=== PATIENT | male | born 1970 | race Caucasian/White ===

== ENCOUNTER 2017-07-14 06:22 | Emergency (ER) | payer BC, OTHER ==
[~2017-07-14] VITALS: Ht 182.9 cm; Wt 99.8 kg
[~2017-07-14 06:22] MED LIST: ACETAMINOPHEN-1 EAC1 PO; CARVEDILOL25 MG PO; CEPHALEXIN500 MG PO; ERYTHROMYCIN3.5 GM OD; IBUPROFEN200 MG PO; IBUPROFEN600 MG PO; LISINOPRIL-HCT1 EAC2 PO; LISINOPRIL10 MG PO; NAPROSYN500 MG PO; NORCO 10-325 T1 EACH PO; NORCO 5-325 TA1 EACH PO; TOBRAMYCIN5 ML OD
== END 2017-07-14 08:27 | disposition home or self-care (01) ==
LOC: ED 06:22
DX: M79.642 Pain in left hand (principal); I10 Essential (primary) hypertension; F17.200 Nicotine dependence, unspecified, uncomplicated; Z79.899 Other long term (current) drug therapy
CPT/HCPCS: 73130; 99283

== ENCOUNTER 2018-08-03 11:09 | Observation (INO) | payer BC, OTHER ==
[~2018-08-03] VITALS: Ht 182.9 cm; Wt 96.8 kg
--- OUTSIDE RECORDS SUMMARY | ~2018-08-03 | XMS | Clinical Summary ---
Demographics + + + | Address | [address] | | | [place] [address] | + + + | Home Phone | | + + + | Preferred Language | Unknown | + + + | Marital Status | Unknown | + + + | Moravian Affiliation | Unknown | + + + | Race | Unknown | + + + | Ethnic Group | Unknown | + + + Author + + + | Author | [facility] | | | and Shiva | + + + | Organization | [facility] | | | and [place] | + + + | Address | Unknown | + + + | Phone | Unavailable | + + + Care Team Providers + +------+ + | Care Clip On Sunglasses Assembler Name | Role | Phone | + [...]
--- OUTSIDE RECORDS SUMMARY | ~2018-08-03 | XMS | Clinical Summary ---
Demographics + + + | Address | [address] | | | [place] [address] | + + + | Home Phone | | + + + | Preferred Language | Unknown | + + + | Marital Status | Single | + + + | Religion Affiliation | Unknown | + + + | Race | Unknown | + + + | Ethnic Group | Unknown | + + + Author + + + | Author | [facility] | + + + | Organization | [facility] | + + + | Address | Unknown | + + + | Phone | Unavailable | + + + Support + + +---------+ + | Name | Relationship | Address | Phone | + + +---------+ + | No,Contact | ECON | Unknown | | + + +---------+ + Care Team Providers + +------+ + | Care Salesperson Flying Squad Name | Role | Phone | + [...] | [employer] | ODS | [id number] | | | | | | HEALTH [...] | cass[place] | | | [address] | [phone] | + +--------+ +--------+ + +"
--- OUTSIDE RECORDS SUMMARY | 2018-08-03 12:14 | XMS | Clinical Summary ---
Demographics + + + | Address | [address] | | | [place] [address] | + + + | Home Phone | | + + + | Preferred Language | Unknown | + + + | Marital Status | Single | + + + | Muslim Affiliation | Unknown | + + + | Race | Unknown | + + + | Ethnic Group | Unknown | + + + Author + + + | Author | [facility] | + + + | Organization | [facility] | + + + | Address | Unknown | + + + | Phone | Unavailable | + + + Support + + +---------+ + | Name | Relationship | Address | Phone | + + +---------+ + | No,Contact | ECON | Unknown | | + + +---------+ + Care Team Providers + +------+ + | Care Pan Washer Name | Role | Phone | + +------+ + | Tasha Becerril PA-C | PP | | + +------+ + Allergies Not on File Current Medications Not on file Active Problems Not on file Social History + +-------+ +--------+------+ | Tobacco Use | Types | Packs/Day | Years | Date | | | | | Used | | + +-------+ +--------+------+ | Never Assessed | | | | | + +-------+ +--------+------+ + + + | Sex Assigned at | Date Recorded | | | | + + + | Not on file | | + + + Plan of Treatment Not on file Results Not on filefrom Last 3 Months Insurance + +--------+ +------+-------+---------+ | Payer | Benefi | Subscriber | Type | Phone | Address | | | t Plan | ID | | | | | | / | | | | | | | Group | | | | | + +--------+ +------+-------+---------+ | [employer] | ODS | [id number] | | | | | | HEALTH | | | | | | | PLAN | | | | | + +--------+ +------+-------+---------+ + +--------+ +--------+ + + | Guarantor Name | Accoun | Relation to | Date | Phone | Billing Address | | | t Type | Patient | of | | | | | | | | | | + +--------+ +--------+ + + | HELADIO MONIQUE | Person | Self [birth year] | Home: | [address] | | | al/Fam | | 1970 | [phone] [place], [place] | | | cassandra | | | [phone] | [phone] | + +--------+ +--------+ + +"
--- OUTSIDE RECORDS SUMMARY | 2018-08-03 12:14 | XMS | Clinical Summary ---
Demographics + + + | Address | [address] | | | [place] [address] | + + + | Home Phone | | + + + | Preferred Language | Unknown | + + + | Marital Status | Single | + + + | Rastafarian Affiliation | Unknown | + + + | Race | Unknown | + + + | Ethnic Group | Unknown | + + + Author + + + | Author | [facility] | + + + | Organization | [facility] | + + + | Address | Unknown | + + + | Phone | Unavailable | + + + Support + + +---------+ + | Name | Relationship | Address | Phone | + + +---------+ + | No,Contact | ECON | Unknown | | + + +---------+ + Care Team Providers + +------+ + | Care Erp Project Manager Name | Role | Phone | + [...] | [employer] | ODS | [id number] | | | | | | HEALTH [...] | cassandra | | | [address] | [phone] | + +--------+ +--------+ + +"
--- OUTSIDE RECORDS SUMMARY | 2018-08-03 12:14 | XMS | Clinical Summary ---
Demographics + + + | Address | [address] | | | [place] [address] | + + + | Home Phone | | + + + | Preferred Language | Unknown | + + + | Marital Status | Unknown | + + + | Christianity Affiliation | Unknown | + + + | Race | Unknown | + + + | Ethnic Group | Unknown | + + + Author + + + | Author | [facility] | | | and [facility]iva | + + + | Organization | [facility] | | | and [place] | + + + | Address | Unknown | + + + | Phone | Unavailable | + + + Care Team Providers + +------+ + | Care Bank Clerk Name | Role | Phone | + +------+ + PP | Unavailable | + +------+ + Allergies Not on [...] | + + + Plan of Treatment + + + + + | Health Maintenance | Due Date | Last Done | Comments | + + + + + | Vaccine: | | | | | Dtap/Tdap/Td (1 - | 8 | | | | Tdap) | | | | + + + + + | Vaccine: Influenza | | | | | (#1) | 8 | | | + + + + + Results Not on filefrom Last 3 Months"
--- OUTSIDE RECORDS SUMMARY | 2018-08-03 12:14 | XMS | Clinical Summary ---
Demographics + + + | Address | [address] | | | [place] [address] | + + + | Home Phone | | + + + | Preferred Language | Unknown | + + + | Marital Status | Unknown | + + + | Hindu Affiliation | Unknown | + + + | Race | Unknown | + + + | Ethnic Group | Unknown | + + + Author + + + | Author | [facility] | | | and [facility] | + + + | Organization | [facility] | | | and [place] | + + + | Address | Unknown | + + + | Phone | Unavailable | + + + Care Team Providers + +------+ + | Care Treating Engineer Name | Role | Phone | + [...]
--- NOTE | 2018-08-03 15:00 | NUR ---
PT ARRIVED TO FLOOR AT 1455. ADMISSION INTAKE COMPLETED. VSS. PT GIVEN POTASSIUM PO AND IV MAGNESIUM PER ORDER. PT ASSISTED TO ORDER DINNER.
--- NOTE | 2018-08-03 16:27 | NUR ---
MED REC COMPLETE WITH [facility] REFILL HISTORY. PATIENT RECENTLY 07/29/18 FILLED FOR PERMETHRIN. PATIENT FILLS LISINOPRIL-HCTZ APPROXIMATELY EVERY 60 DAYS FOR A 30 DAY SUPPLY.
--- NOTE | 2018-08-03 18:08 | NUR ---
PT VS AND CONDITION STABLE TODAY SINCE HIS ARRIVAL TO UNIT AND INTO ROOM ON MED SURG. PT VERY PLEASANT, CALM AND COOPERATIVE. PRN NORCO GIVEN FOR RIGHT ARM PAIN WHICH ADEQUATELY HELPED PAIN. ROOM AIR. SALINE LOCKED. STEADY ON FEET INDEPENDENTLY. RIGHT ARM ELEVATED ON PILLOW TO HELP DECREASE SWELLING. GAUZE COVERING ASPRIATION SITE ON RIGHT ELBOW- IT'S C/D/I. GENERALIZED SCRATCHES AND SCABS OVER BODY, MOST SPECIFICALLY ON BUE AND BLE FROM RECENT CASE OF SCABIES. PT STATES HIS TREATMENT FOR SCABIES HAS BEEN COMPLETED BUT HE REMAINS ON CONTACT PRECAUTIONS IN CASE. LAST BM WAS YESTERDAY. PT HAS UPPER DENTURES IN. PT HAS NO CURRENT QUESTIONS OR CONCERNS. CALL LIGHT WITHIN REACH. CALLS APPROPRIATELY. WILL CONTINUE TO MONITOR.
--- NOTE | 2018-08-03 20:00 | NUR ---
RECEIVED REPORT AT 1900, FOUND PT IN BED WITH SPOUSE AT BEDSIDE. PT STATED ONLY MINIMAL PAIN PRESENT. NO NEW CONCERNS AT THIS TIME.
--- NOTE | 2018-08-03 20:22 | NUR ---
CHARGE NURSE ROUNDING NOTE: OBSERVATION STATUS AND CONTACT PRECAUTIONS IN PLACE. AWAKE, WATCHING TV, NO C/O PAIN OR REQUESTS, FLUIDS AND CALL LIGHT AT BEDSIDE
--- NOTE | 2018-08-03 22:00 | NUR ---
PT IS AWAKE IN BED WATCHING TV. PT DENIES PAIN AT THIS TIME. PT HAS NO NEEDS OR CONCERNS AT THIS TIME.
--- NOTE | 2018-08-03 23:55 | NUR ---
PT CALLED FOR HEARTBURN MEDICATION. NIO-ORDER FOR MAALOX WAS PUT IN. PT STATED 0/10 PAIN. RIGHT RADIAL PULSE IS +2, EDEMA +2. PT DENIES NUMBNESS IN RIGHT ARM AND HAND. OUTLINE OF CELLULITIS HAS BEEN TRACED WITH A SHARPY TO MONITOR PROGRESS. NO NEW CONCERNS AT THIS TIME. PT IS TRYING TO SLEEP.
--- NOTE | 2018-08-04 02:00 | NUR ---
PT WAS WOKEN UP FOR MEDICATION, V/S AND ANOTHER ASSESSMENT. PT AT THIS TIME HAS A TEMP OF 100.0 F. PAIN IS 0/10. PT IS BACK TO SLEEP. WILL CONTINUE TO MONITOR.
--- NOTE | 2018-08-04 04:00 | NUR ---
PT AT THIS TIME IS SLEEPING.
--- NOTE | 2018-08-04 05:41 | NUR ---
V/S ARE WDL, RIGHT ARM EDEMA IS +2 BUT PT STATED IT IS MUCH BETTER. REDNESS HAS ALSO RECEIDED STATED BY PATIENT. AT START OF SHIFT PT HAD SOME NUMBNESS IN RIGHT HANDS AND FINGERS WITH RADIAL PULE +2. AT THIS TIME PT DENIES NUMBNESS IN HAND AND FINGERS AND RADIAL PULSE IS STILL +2. PT AT START OF SHIFT WAS AFEBRILE. TEMP AT 0145 WAS 100.0. AT THIS TIME TEMP IS 99.9. WILL CONTINUE TO MONITOR. PAIN IS WELL CONTROLLED WITH PRN PAIN MEDS. ALL LOBES ARE CLEAR, ABD SOUNDS ARE PRESENT AND NO OTHER EDEMA HAS BEEN NOTED, PT IS AAO X4. REDNESS ON RIGHT ARM HAS BEEN TRACED WITH SHARPY.
--- NOTE | 2018-08-04 07:37 | NUR ---
BEDSIDE REPORT RECEIVED FROM RHONDA CARBAJAL. WHITE BOARD UPDATED. CONTACT CART OUTSIDE ROOM. CONTACT ISOLATION FOR HX OF SCABIES RECENTLY. PT AWAKE UPON ENTERING ROOM. BREAKFAST ORDERED. SALINE LOCKED. RIGHT ARM REDNESS MARKED. WBCs NOT IMPROVED OVERNIGHT. FEBRILE OVERNIGHT WELL. CHARGE NURSE NOTIFIED OF CONCERN FOR CHANGE IN PLAN OF CARE FOR INFECTION. PATIENT SET UP FOR SHOWER. WARM BLANKETS PROVIDED. PT HAVING CHILLS THIS MORNING.
--- NOTE | 2018-08-04 09:37 | NUR ---
PT COMPLETING HIS OWN SHOWER NOW. NEW GOWN AND SOCKS PROVIDED. SALINE LOCKED AND IV COVERED.
--- NOTE | 2018-08-04 14:13 | NUR ---
PT RESTING IN BED NOW. NO NEEDS. TEMP 98.8 ORALLY. CHILLS HAVE STOPPED. FAMILY IN TO VISIT EARLIER.
--- NOTE | 2018-08-04 18:36 | NUR ---
CONTACT ISO FOR RECENT HX SCABIES. FEBRILE TODAY. INDEPENDENT IN ROOM. SHOWERED TODAY. TYLENOL X1. NORCO X1. SALINE LOCKED. CLINDAMYCIN. REGULAR DIET. POSSIBLE HEP C.
--- NOTE | 2018-08-04 20:15 | NUR ---
PT RESTING IN BED WATCHING TV. ASSESSMENT COMPLETED. CALL LIGHT AND H20 IN REACH. PT DENIES NEEDS AT THIS TIME. .
--- NOTE | 2018-08-04 20:20 | NUR ---
HANDKERCHIEF PRESSER ROUNDING. PT'S PRIMARY RN IN ROOM. PT REQUESTING MORE COLA, PROVIDED. PT DENIES OTHER NEEDS AT THIS TIME. CALL LIGHT WITHIN REACH.
--- NOTE | 2018-08-04 22:50 | NUR ---
V/S AND I&O DONE AND CHARTED. 2 ICE WATER CUP REFILLED. NO OTHER NEEDS AT THE MOMENT.
--- NOTE | 2018-08-04 23:07 | NUR ---
PT RESTING IN BED, ALERT AND ORIENTED X3, PT DENIES NEEDS. CALL LIGHT IN REACH. RIGHT ARM REMAINS ELEVATED ON PILLOW.
--- NOTE | 2018-08-05 02:03 | NUR ---
PT RESTING IN BED, EYES CLOSED AND RESPIRATIONS EVEN AND UNLABORED. CALL LIGHT AND H20 IN REACH. PT APPEARS TO BE SLEEPING COMFORTABLY.
--- NOTE | 2018-08-05 04:55 | NUR ---
IN TO SEE PATIENT. PT REPORTS 8/10 PAIN TO RIGHT ARM AND A HEADACHE THAT HE STATES IS THE SAME HEADACHE HE SUFFERS FROM ON RARE OCCASIONS. ASSESSMENT COMPLETED AND PT REQUESTED AND RECEIVED PRN PO NORCO/10/325MG. CALL LIGHT IN REACH AND FRESH ICE WATER PROVIDED.
--- NOTE | 2018-08-05 05:16 | NUR ---
PT A/O X4, REMAINS ON CONTACT ISOLATION FOR RECENT HX OF SCABIES. PT HAS BEEN AFEBRILE TONIGHT AND HAS EXPRESSED HIS DESIRE TO BE DISCHARGED TODAY. PT IS INDEPENDANT IN ROOM. PT DID EXPERIENCE 8/10 PAIN THIS MORNING AND WAS GIVEN 10/325 TABLET OF NORCO PO. SALINE LOCKED WITH SCHEDULED IV CLINDAMYCIN. REGULAR DIET. AFEBRILE THIS SHIFT "I AM FEELING MUCH BETTER, IT HELPED THAT I WAS ABLE TO GET SOME SLEEP AND MY ARM LOOKS AND FEELS MUCH BETTER. I HOPE THIS MEANS I GET TO GO HOME TODAY".
--- NOTE | 2018-08-05 08:11 | NUR ---
PATIENT WAS UP IN ROOM, USING THE RESTROOM, BREAKFAST ARRIVED, HE ASKED FOR MORE COFFEE, WENT ON A WALK, AND IS CURRENTLY EATING BREAKFAST, READY TO GO HOME
--- NOTE | 2018-08-05 08:55 | NUR ---
PT PLEASANT, CALM AND COOPERATIVE WITH SOME C/O DISCOMFORT IN RIGHT ARM BUT STATES THAT IT IS TOLERABLE- TYLENOL GIVEN TO HELP MANAGE DISCOMFORT. ASSESSMENT COMPLETED AND MEDS GIVEN. ROOM AIR. NO NUMBNESS IN RIGHT HAND, PULSES STRONG AND CAP REFILL <3 SEC. ARM IS WARM AND RED BUT REDNESS HAS DECREASED SINCE THIS RN HAD HIM ON MONDAY EVENING. INDEPENDENT IN ROOM, STRONG AND STEADY ON FEET. LAST BM 13. PT HAS NO QUESTIONS OR CONCERNS. CALL LIGHT WITHIN REACH. WILL CONTINUE TO MONITOR.
[2018-08-05] MEDS ORDERED: CLINDAMYCIN HC300 MG PO (10:22)
[2018-08-05] MEDS ORDERED: BLEPH-105 ML OPTH (10:24)
--- NOTE | 2018-08-05 10:45 | NUR ---
PT SITTING COMFORTABLY IN ROOM WATCHING TV. AWAITING DISCHARGE. MINIMAL PAIN AFTER TYLENOL. NO QUESTIONS OR CONCERNS. CALL LIGHT WITHIN REACH. WILL CONTINUE TO MONITOR AND BE ABLE TO DC SHORLY.
== END 2018-08-05 11:50 | disposition home or self-care (01) ==
LOC: ED 11:09 → MS 11:11
PROVIDERS: ADMIT Internal Medicine
PROC: 0R9L3ZX Drainage of Right Elbow Joint, Percutaneous Approach, Diagnostic (ICD-10-PCS; principal; 2018-08-03)
DX: M71.121 Other infective bursitis, right elbow (principal); L03.113 Cellulitis of right upper limb; I10 Essential (primary) hypertension; F17.200 Nicotine dependence, unspecified, uncomplicated; Z79.899 Other long term (current) drug therapy; Z23 Encounter for immunization
CPT/HCPCS: 36415; 80048; 80053; 83605; 83735; 85025; 96365; 96366; 96375; 99284; 99406; G0378; J1885; J3475; J3490

== ENCOUNTER 2018-08-09 07:30 | Emergency (ER) | payer BC, OTHER ==
[~2018-08-09] VITALS: Ht 182.9 cm; Wt 96.8 kg
--- OUTSIDE RECORDS SUMMARY | ~2018-08-09 | XMS | Clinical Summary ---
Demographics + + + | Address | [address] | | | [place] [address] | + + + | Home Phone | | + + + | Preferred Language | Unknown | + + + | Marital Status | Single | + + + | Roman Catholic Affiliation | Unknown | + + + | Race | Unknown | + + + | Ethnic Group | Unknown | + + + Author + + + | Author | [facility] | + + + | Organization | [facility] | + + + | Address | Unknown | + + + | Phone | Unavailable | + + + Support + + +---------+ + | Name | Relationship | Address | Phone | + + +---------+ + | No,Contact | ECON | Unknown | | + + +---------+ + Care Team Providers + +------+ + | Care Magnetic Tape Winder Name | Role | Phone | + [...] | [employer] | ODS | [id number] | | | | | | HEALTH [...] | [place] | | | [address] | [phone] | + +--------+ +--------+ + +"
--- OUTSIDE RECORDS SUMMARY | ~2018-08-09 | XMS | Clinical Summary ---
Demographics + + + | Address | [address] | | | [place] [address] | + + + | Home Phone | | + + + | Preferred Language | Unknown | + + + | Marital Status | Unknown | + + + | Buddhism Affiliation | Unknown | + + + | Race | Unknown | + + + | Ethnic Group | Unknown | + + + Author + + + | Author | [facility] | | | and [facility]iva | + + + | Organization | [facility] | | | and [place] | + + + | Address | Unknown | + + + | Phone | Unavailable | + + + Care Team Providers + +------+ + | Care Associate Product Integrity Engineer Name | Role | Phone | [...]
--- OUTSIDE RECORDS SUMMARY | ~2018-08-09 | XMS | Clinical Summary ---
Demographics + + + | Address | [address] | | | [place] [address] | + + + | Home Phone | | + + + | Preferred Language | Unknown | + + + | Marital Status | Single | + + + | Jew Affiliation | Unknown | + + + | Race | Unknown | + + + | Ethnic Group | Unknown | + + + Author + + + | Author | [facility] | + + + | Organization | [facility] | + + + | Address | Unknown | + + + | Phone | Unavailable | + + + Support + + +---------+ + | Name | Relationship | Address | Phone | + + +---------+ + | No,Contact | ECON | Unknown | | + + +---------+ + Care Team Providers + +------+ + | Care Duty Officer Name | Role | Phone | + [...] | [employer] | ODS | [id number] | | | | | | HEALTH [...] | [place] | | | [address] | [address] | + +--------+ +--------+ + +"
--- OUTSIDE RECORDS SUMMARY | ~2018-08-09 | XMS | Clinical Summary ---
Demographics + + + | Address | [address] | | | [place] [address] | + + + | Home Phone | | + + + | Preferred Language | Unknown | + + + | Marital Status | Unknown | + + + | Baptist Affiliation | Unknown | + + + | Race | Unknown | + + + | Ethnic Group | Unknown | + + + Author + + + | Author | [facility] | | | and [facility] | + + + | Organization | [facility] | | | and [place] | + + + | Address | Unknown | + + + | Phone | Unavailable | + + + Care Team Providers + +------+ + | Care Electromatic Typist Name | Role | Phone | + [...]
[~2018-08-09 07:30] MED LIST changes: +BLEPH-105 ML OPTH; +CLINDAMYCIN HC300 MG PO
--- OUTSIDE RECORDS SUMMARY | 2018-08-09 07:36 | XMS ---
PreManage Notification: [employer] Security Community Health Program Coordinator Events No recent Security Events currently on file CRITERIA MET - [facility] - 2 Visits in 30 Days CARE PROVIDERS Tasha Becerril Primary Care Current PAC PHONE: Unknown Emily has no Care Guidelines for this patient. E.Navjot VISIT COUNT (12 MO.) 2 [facility] TOTAL 2 NOTE: Visits indicate total known visits. ED/UCC VISIT TRACKING (12 MO.) 08/09/2018 07:31 [facility] [place] TYPE: Emergency COMPLAINT: - R ELBOW PAIN/SWELLING/NO INJURY 08/03/2018 11:10 [facility] [place] TYPE: Emergency COMPLAINT: - R ELBOW PAIN/INJURY INPATIENT VISIT TRACKING (12 MO.) No inpatient visits to display in this time frame [id number]
[2018-08-09] MEDS ORDERED: PENICILLIN V P500 MG PO (08:18)
== END 2018-08-09 09:08 | disposition home or self-care (01) ==
LOC: ED 07:30
DX: S05.01XA Injury of conjunctiva and corneal abrasion without foreign body, right eye, initial encounter (principal); L03.113 Cellulitis of right upper limb; I10 Essential (primary) hypertension; F17.200 Nicotine dependence, unspecified, uncomplicated; Z79.899 Other long term (current) drug therapy; X58.XXXA Exposure to other specified factors, initial encounter
CPT/HCPCS: 80048; 85025; 96361; 96374; 96375; 99283; J0696; J2405; J7030

== ENCOUNTER 2018-08-10 07:41 | Emergency (ER) | payer BC, OTHER ==
[~2018-08-10] VITALS: Ht 182.9 cm; Wt 96.8 kg
--- OUTSIDE RECORDS SUMMARY | ~2018-08-10 | XMS | Clinical Summary ---
Demographics + + + | Address | [address] | | | [place] [address] | + + + | Home Phone | | + + + | Preferred Language | Unknown | + + + | Marital Status | Unknown | + + + | Synagogue Affiliation | Unknown | + + + | Race | Unknown | + + + | Ethnic Group | Unknown | + + + Author + + + | Author | [facility] | | | and [facility] | + + + | Organization | [facility] | | | and [place] | + + + | Address | Unknown | + + + | Phone | Unavailable | + + + Care Team Providers + +------+ + | Care Paid Search Marketing Analyst Name | Role | Phone | + [...]
--- OUTSIDE RECORDS SUMMARY | ~2018-08-10 | XMS | Clinical Summary ---
Demographics + + + | Address | [address] | | | [place] [address] | + + + | Home Phone | | + + + | Preferred Language | Unknown | + + + | Marital Status | Single | + + + | Anabaptist Affiliation | Unknown | + + + | Race | Unknown | + + + | Ethnic Group | Unknown | + + + Author + + + | Author | [facility] | + + + | Organization | [facility] | + + + | Address | Unknown | + + + | Phone | Unavailable | + + + Support + + +---------+ + | Name | Relationship | Address | Phone | + + +---------+ + | No,Contact | ECON | Unknown | | + + +---------+ + Care Team Providers + +------+ + | Care Cutter Grinder Name | Role | Phone | + [...] | [employer] | ODS | [id number] | | | | | | HEALTH [...] | [place] | | | [address] | [address] | + +--------+ +--------+ + +"
--- OUTSIDE RECORDS SUMMARY | ~2018-08-10 | XMS | Clinical Summary ---
Demographics + + + | Address | [address] | | | [place] [address] | + + + | Home Phone | | + + + | Preferred Language | Unknown | + + + | Marital Status | Unknown | + + + | Nondenominational Affiliation | Unknown | + + + | Race | Unknown | + + + | Ethnic Group | Unknown | + + + Author + + + | Author | [facility] | | | and [facility] | + + + | Organization | [facility] | | | and [place] | + + + | Address | Unknown | + + + | Phone | Unavailable | + + + Care Team Providers + +------+ + | Care Energy Economist Name | Role | Phone | + [...]
--- OUTSIDE RECORDS SUMMARY | ~2018-08-10 | XMS | Clinical Summary ---
Demographics + + + | Address | [address] | | | [place] [address] | + + + | Home Phone | | + + + | Preferred Language | Unknown | + + + | Marital Status | Single | + + + | Zoroastrian Affiliation | Unknown | + + + | Race | Unknown | + + + | Ethnic Group | Unknown | + + + Author + + + | Author | [facility] | + + + | Organization | [facility] | + + + | Address | Unknown | + + + | Phone | Unavailable | + + + Support + + +---------+ + | Name | Relationship | Address | Phone | + + +---------+ + | No,Contact | ECON | Unknown | | + + +---------+ + Care Team Providers + +------+ + | Care Weight Guesser Name | Role | Phone | + [...] | [employer] | ODS | [id number] | | | | | | HEALTH [...] | [place] | | | [address] | [phone] | + +--------+ +--------+ + +"
[~2018-08-10 07:41] MED LIST changes: +PENICILLIN V P500 MG PO
--- OUTSIDE RECORDS SUMMARY | 2018-08-10 07:46 | XMS ---
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 E.Navjot VISIT COUNT (12 MO.) 3 [facility] TOTAL 3 NOTE: Visits indicate total known visits. ED/UCC VISIT TRACKING (12 MO.) 08/10/2018 07:41 [facility] [place] TYPE: Emergency COMPLAINT: - EXTREMITY PAIN 08/09/2018 07:31 [facility] [place] TYPE: Emergency COMPLAINT: - R ELBOW PAIN/SWELLING/NO INJURY 08/03/2018 11:10 [facility] [place] TYPE: Emergency COMPLAINT: - R ELBOW PAIN/INJURY INPATIENT VISIT TRACKING (12 MO.) No inpatient visits to display in this time frame [id number]
== END 2018-08-10 08:26 | disposition home or self-care (01) ==
LOC: ED 07:41
DX: L03.113 Cellulitis of right upper limb (principal); S05.01XD Injury of conjunctiva and corneal abrasion without foreign body, right eye, subsequent encounter; N64.3 Galactorrhea not associated with childbirth; I10 Essential (primary) hypertension; F17.200 Nicotine dependence, unspecified, uncomplicated; Z79.899 Other long term (current) drug therapy; X58.XXXD Exposure to other specified factors, subsequent encounter
CPT/HCPCS: 96372; 99283; J0696

== ENCOUNTER 2018-08-11 06:17 | Emergency (ER) | payer BC, OTHER ==
[~2018-08-11] VITALS: Ht 182.9 cm; Wt 96.8 kg
--- OUTSIDE RECORDS SUMMARY | ~2018-08-11 | XMS | Clinical Summary ---
Demographics + + + | Address | [address] | | | [place] [address] | + + + | Home Phone | | + + + | Preferred Language | Unknown | + + + | Marital Status | Single | + + + | Adventist Affiliation | Unknown | + + + | Race | Unknown | + + + | Ethnic Group | Unknown | + + + Author + + + | Author | [facility] | + + + | Organization | [facility] | + + + | Address | Unknown | + + + | Phone | Unavailable | + + + Support + + +---------+ + | Name | Relationship | Address | Phone | + + +---------+ + | No,Contact | ECON | Unknown | | + + +---------+ + Care Team Providers + +------+ + | Care Alumni Secretary Name | Role | Phone | + [...] | [employer] | ODS | [id number] | | | | | | HEALTH [...] | [place] | | | [address] | [phone] | + +--------+ +--------+ + +"
--- OUTSIDE RECORDS SUMMARY | ~2018-08-11 | XMS | Clinical Summary ---
Demographics + + + | Address | [address] | | | [place] [address] | + + + | Home Phone | | + + + | Preferred Language | Unknown | + + + | Marital Status | Unknown | + + + | Church Affiliation | Unknown | + + + | Race | Unknown | + + + | Ethnic Group | Unknown | + + + Author + + + | Author | [facility] | | | and [facility]iva | + + + | Organization | [facility] | | | and [place] | + + + | Address | Unknown | + + + | Phone | Unavailable | + + + Care Team Providers + +------+ + | Care Vice President Tax Name | Role | Phone | + [...]
--- OUTSIDE RECORDS SUMMARY | ~2018-08-11 | XMS | Clinical Summary ---
Demographics + + + | Address | [address] | | | [place] [address] | + + + | Home Phone | | + + + | Preferred Language | Unknown | + + + | Marital Status | Unknown | + + + | Roman Catholic Affiliation | Unknown | + + + | Race | Unknown | + + + | Ethnic Group | Unknown | + + + Author + + + | Author | [facility] | | | and Shiva | + + + | Organization | [facility] | | | and [place] | + + + | Address | Unknown | + + + | Phone | Unavailable | + + + Care Team Providers + +------+ + | Care Fine Wire Drawer Name | Role | Phone | + [...]
--- OUTSIDE RECORDS SUMMARY | ~2018-08-11 | XMS | Clinical Summary ---
Demographics + + + | Address | [address] | | | [place] [address] | + + + | Home Phone | | + + + | Preferred Language | Unknown | + + + | Marital Status | Single | + + + | Yarsanism Affiliation | Unknown | + + + | Race | Unknown | + + + | Ethnic Group | Unknown | + + + Author + + + | Author | [facility] | + + + | Organization | [facility] | + + + | Address | Unknown | + + + | Phone | Unavailable | + + + Support + + +---------+ + | Name | Relationship | Address | Phone | + + +---------+ + | No,Contact | ECON | Unknown | | + + +---------+ + Care Team Providers + +------+ + | Care Boom Stick Worker Name | Role | Phone | + [...] | [employer] | [facility]DS | [id number] | | | | | | HEALTH [...] | [place] | | | [phone] | [phone] | + +--------+ +--------+ + +"
--- OUTSIDE RECORDS SUMMARY | 2018-08-11 06:22 | XMS ---
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 Leidy VISIT COUNT (12 MO.) [address] [place] [address] TOTAL 4 NOTE: Visits indicate total known visits. ED/UCC VISIT TRACKING (12 MO.) 08/11/2018 06:18 [facility] [place] TYPE: Emergency COMPLAINT: - REQUEST ANTIBIOTIC SHOT 08/10/2018 07:41 [facility] [place] TYPE: Emergency COMPLAINT: - EXTREMITY PAIN NON INJURY 08/09/2018 07:31 [facility] [place] TYPE: Emergency COMPLAINT: - R ELBOW PAIN/SWELLING/NO INJURY 08/03/2018 11:[address] [facility] [place] TYPE: Emergency COMPLAINT: - R ELBOW PAIN/INJURY INPATIENT VISIT TRACKING (12 MO.) No inpatient visits to display in this time frame [id number]
== END 2018-08-11 07:08 | disposition home or self-care (01) ==
LOC: ED 06:17
DX: L03.113 Cellulitis of right upper limb (principal); I10 Essential (primary) hypertension; F17.200 Nicotine dependence, unspecified, uncomplicated; Z79.899 Other long term (current) drug therapy
CPT/HCPCS: 96372; 99283; J0696

== ENCOUNTER 2021-10-03 11:05 | Emergency (ER) | payer OTHER ==
[~2021-10-03] VITALS: Ht 182.9 cm; Wt 99.8 kg
[2021-10-03] MEDS ORDERED: LISINOPRIL-HCT1 EACH PO (11:30)
[2021-10-03] MEDS ORDERED: LISINOPRIL20 MG PO (11:30)
[2021-10-03] MEDS ORDERED: ONDANSETRON ODT8 MG PO (12:46)
== END 2021-10-03 12:55 | disposition home or self-care (01) ==
LOC: ED 11:05
DX: B34.9 Viral infection, unspecified (principal); I10 Essential (primary) hypertension; F17.200 Nicotine dependence, unspecified, uncomplicated; Z79.899 Other long term (current) drug therapy; Z20.822 Contact with and (suspected) exposure to COVID-19
CPT/HCPCS: 87077; 87081; 99284; C9803; U0003

== ENCOUNTER 2021-11-07 14:35 | Emergency (ER) | payer OTHER ==
[~2021-11-07] VITALS: Ht 182.9 cm; Wt 99.8 kg
[~2021-11-07 14:35] MED LIST changes: +LISINOPRIL-HCT1 EACH PO; +LISINOPRIL20 MG PO; +ONDANSETRON ODT8 MG PO
== END 2021-11-07 15:12 | disposition home or self-care (01) ==
LOC: ED 14:35
DX: R60.0 Localized edema (principal); I10 Essential (primary) hypertension; F17.200 Nicotine dependence, unspecified, uncomplicated; Z79.899 Other long term (current) drug therapy
CPT/HCPCS: 99283

== ENCOUNTER 2021-11-30 17:43 | Emergency (ER) | payer OTHER ==
[~2021-11-30] VITALS: Ht 182.9 cm; Wt 102.1 kg
--- OUTSIDE RECORDS SUMMARY | 2021-11-30 17:50 | XMS ---
PreManage Notification: [employer] Security Dice Table Person Events No recent Security Events currently on file CRITERIA MET - [facility] - 2 Visits in 30 Days CARE PROVIDERS RUBINA MOHR Physician Print Journalist Current PHONE: [phone] Emily has no Care Guidelines for this patient. Leidy VISIT COUNT (12 MO.) 3 [facility] TOTAL 3 NOTE: Visits indicate total known visits. ED/UCC VISIT TRACKING (12 MO.) 11/30/2021 17:44 [facility] TYPE: Emergency COMPLAINT: - LT ANKLE INJURY 11/07/2021 14:35 [facility] TYPE: Emergency COMPLAINT: - SWELLING ON HEAD DIAGNOSES: - Localized edema - Other oysterman (current) drug therapy - Essential (primary) hypertension - Nicotine dependence, unspecified, uncomplicated 10/03/2021 11:06 [facility] TYPE: Emergency COMPLAINT: - VOMITING, COUGHING, SORE THROAT DIAGNOSES: - Other oysterman (current) drug therapy - Essential (primary) hypertension - Nicotine dependence, unspecified, uncomplicated - Vomiting, unspecified - Viral infection, unspecified INPATIENT VISIT TRACKING (12 MO.) No inpatient visits to display in this time frame [email or web address]
[2021-11-30] MEDS ORDERED: ULTRAM50 MG PO (19:52)
== END 2021-11-30 20:23 | disposition home or self-care (01) ==
LOC: ED 17:43
DX: S93.402A Sprain of unspecified ligament of left ankle, initial encounter (principal); X50.1XXA Overexertion from prolonged static or awkward postures, initial encounter; I10 Essential (primary) hypertension; F17.200 Nicotine dependence, unspecified, uncomplicated; Z79.899 Other long term (current) drug therapy
CPT/HCPCS: 73610; 96372; 99283-25; J2270